=== PATIENT | male | born 1990 | race Caucasian/White ===

== ENCOUNTER 2023-03-01 15:04 | Emergency (ER) | payer SELFPAY ==
[2023-03-01 15:49] LABS: Absolute Lymphocytes (CBC) 2.3 K/uL (0.7-4.9); Hematocrit 44.2 % (39.6-49.0); Lymphocytes % 24.1 % (15.3-44.8); MPV 9.5 fL (7.6-11.3); Platelets 245 thou/uL (152-406); RBC Red Blood Cell Count 4.65 M/uL (4.33-5.43)
[2023-03-01 16:14] LABS: Magnesium 2.4 mg/dL (1.6-2.4); Potassium 3.6 mEq/L (3.5-5.1); Troponin High Sensitivity 3.8 pg/mL (<58.9)
--- NOTE | 2023-03-01 17:09 | RAD REPORT ---
EXAM DESCRIPTION: [facility] Single View03/01/2023 4:05 pm CLINICAL HISTORY: PALPITATIONS COMPARISON: No comparisons TECHNIQUE: Portable AP view of the chest. FINDINGS: The lungs are clear. No pneumothorax or effusion. The cardiomediastinal contours are unre markable. IMPRESSION: No acute cardiopulmonary process.
--- NOTE | 2023-03-01 18:17 | EDPHYS ---
Physician Documentation [facility] Name: Akin Freeman Age: 33 yrs Sex: Male : 1990 Arrival Date: 03/01/2023 Time: 15:04 Bed 12 Private MD: ED Physician Estuardo Leo HPI: 03/01 18:08 This 33 yrs old Male presents to ER via EMS with complaints of Palpitations. cp 18:08 The patient presents with a history of heart racing. Context: The symptoms occur while cp on stair master at gym. 18:08 Onset: The symptoms/episode began/occurred just prior to arrival, today. cp 18:08 Duration: The patient or guardian reports a single episode, that is now resolved. cp Associated signs and symptoms: Pertinent positives: lightheadedness, near-syncope, Pertinent negatives: chest pain, fever, SOB, syncope, vomiting. Severity of symptoms: in the emergency department the symptoms have improved markedly. Historical: - Allergies: 15:09 No Known Allergies; ap3 - Home Meds: 15:09 Omeprazole Oral [Active]; ap3 - PMHx: 15:09 Gastroesophageal reflux disease; ap3 - Immunization history:: Client reports receiving the 2nd dose of the Covid vaccine. - Social history:: Smoking status: unknown. ROS: 18:15 Constitutional: Negative for body aches, chills, fever, poor PO intake. cp 18:15 Cardiovascular: Positive for palpitations, Negative for chest pain, edema. cp 18:15 Respiratory: Negative for cough, shortness of breath, wheezing. 18:15 Abdomen/GI: Negative for abdominal pain, nausea, vomiting, and diarrhea. 18:15 : Negative for urinary symptoms. 18:15 Neuro: Positive for dizziness, near syncope, Negative for altered mental status, headache, syncope, weakness. 18:15 All other systems are negative. Exam: 15:42 ECG was reviewed by the Attending Physician. cp 18:20 Constitutional: The patient appears in no acute distress, alert, awake, comfortable, cp non-diaphoretic, non-toxic, well developed, well nourished. 18:20 Head/Face: Normocephalic, atraumatic. cp 18:20 Eyes: Periorbital structures: appear normal, Pupils: equal, round, and reactive to light and accomodation, Extraocular movements: intact throughout, Conjunctiva: normal, no exudate, no injection, Sclera: no appreciated abnormality, Lids and lashes: appear normal, bilaterally. 18:20 ENT: External ear(s): are unremarkable, Nose: is normal, Mouth: Lips: moist, Oral mucosa: pink and intact, moist, Posterior pharynx: is normal, airway is patent, no erythema, no exudate. 18:20 Neck: C-spine: vertebral tenderness, is not appreciated, crepitus, is not appreciated, ROM/movement: is normal, is supple, without pain, no range of motions limitations. 18:20 Chest/axilla: Inspection: Palpation: is normal, no crepitus, no tenderness. 18:20 Cardiovascular: Rate: normal, Rhythm: regular, Heart sounds: murmur, not appreciated, Edema: is not appreciated. 18:20 Respiratory: the patient does not display signs of respiratory distress, Respirations: normal, no use of accessory muscles, no retractions, labored breathing, is not present, Breath sounds: are clear throughout, no decreased breath sounds, no stridor, no wheezing. 18:20 Abdomen/GI: Inspection: abdomen appears normal, Palpation: abdomen is soft and non-tender, in all quadrants. 18:20 Back: pain, is absent, ROM is normal. 18:20 Neuro: Orientation: to person, place \T\ time. Mentation: is normal, Cerebellar function: is grossly normal, Motor: moves all fours, strength is normal, Sensation: is normal. Vital Signs: 15:07 BP 132 / 61; Pulse 88; Resp 16; Temp 98.5; Pulse Ox 98% ; ap3 15:11 Weight 92.99 kg; ap3 18:44 Pulse 76; Pulse Ox 100% ; ap3 MDM: 15:17 Patient medically screened. cp 18:15 Data reviewed: vital signs, nurses notes, lab test result(s), EKG, radiologic studies, cp CT scan, and as a result, I will discharge patient. 18:15 Independent interpretation of the following test(s) in the Emergency Department EKG: cp See my EKG interpretation above. Counseling: I had a detailed discussion with the patient and/or guardian regarding the historical points, exam findings, and any diagnostic results supporting the discharge/admit diagnosis, the presence of at least one elevated blood pressure reading (>120/80) during this emergency department visit, lab results, radiology results. 03/01 15:26 Order name: Basic Metabolic Panel; Complete Time: 18:05 03/01 18:05 Interpretation: Normal except: CL 108; GFR 86. 03/01 15:26 Order name: CBC with Diff; Complete Time: 18:05 cp 03/01 15:26 Order name: Magnesium; Complete Time: 18:05 cp 03/01 15:26 Order name: Troponin HS; Complete Time: 18:05 cp 03/01 15:26 Order name: XRAY Chest (1 view); Complete Time: 18:05 cp 03/01 18:05 Interpretation: Report review. 03/01 15: Order name: EKG; Complete Time: 15:26 cp 03/01 15:26 Order name: Cardiac monitoring; Complete Time: 15:31 cp 03/01 15:26 Order name: EKG - Nurse/Tech; Complete Time: 15:43 03/01 15: Order name: IV Saline Lock; Complete Time: 15:31 cp 03/01 15:26 Order name: Labs collected and sent; Complete Time: 15:43 cp 03/01 15:26 Order name: O2 Per Protocol; Complete Time: 15:31 cp 03/01 15:26 Order name: O2 Sat Monitoring; Complete Time: 15:31 cp EC:42 Rate is 67 beats/min. Rhythm is regular. TN interval is normal. QRS interval is normal. cp QT interval is normal. T waves are Inverted in lead aVR. Interpreted by me. Reviewed by me. Administered Medications: No medications were administered Disposition Summary: 03/01/23 18:16 Discharge Ordered Location: Home cp Problem: new cp Symptoms: have improved cp Condition: Stable cp Diagnosis - Palpitations cp - Syncope Near cp Followup: cp - With: Kirit Argueta MD - When: 2 - 3 days - Reason: Recheck today's complaints Discharge Instructions: - Discharge Summary Sheet cp - Near-Syncope cp - Palpitations cp - Aspirin and Your Heart cp - Ambulatory Cardiac Monitoring cp Forms: - Medication Reconciliation Form cp - Thank You Letter cp - Antibiotic Education cp - Prescription Opioid Use cp - Patient Portal Instructions cp - Leadership Thank You Letter cp - Work release form ap3 Signatures: Dispatcher [employer] EDMS Estuardo Pineda PA PA cp Prokisch, Marya, RN RN ap3
--- NOTE | 2023-03-01 18:17 | ER ---
Nurse's Notes [facility] Name: Akin Freeman Age: 33 yrs Sex: Male : 1990 Arrival Date: 03/01/2023 Time: 15:04 Bed 12 Private MD: Diagnosis: Palpitations;Syncope Near Presentation: 03/01 15:07 Chief complaint: EMS states: patient was working out on a stairmastr when his heart ap3 rate got into the 170s. patient reports feeling dizzy and light headed at that time. patient states today was his first workout in a few years. Coronavirus screen: At this time, the client does not indicate any symptoms associated with coronavirus-19. Ebola Screen: No symptoms or risks identified at this time. Initial Sepsis Screen: Does the patient meet any 2 criteria? No. Patient's initial sepsis screen is negative. Does the patient have a suspected source of infection? No. Patient's initial sepsis screen is negative. Risk Assessment: Do you want to hurt yourself or someone else? Patient reports no desire to harm self or others. Onset of symptoms was March 01, 2023. Care prior to arrival: Medication(s) given: Normal saline infusion, IV initiated. 20 GA, in the right antecubital area. 15:07 Method Of Arrival: EMS: [facility] ap3 15:07 Acuity: ANJELICA 3 ap3 Triage Assessment: 15:08 General: Appears in no apparent distress. Behavior is calm, cooperative, appropriate ap3 for age. Pain: Denies pain. Neuro: Level of Consciousness is awake, alert, obeys commands, Oriented to person, place, time, situation, Reports dizziness, light headedness. Cardiovascular: Patient's skin is warm and dry. Respiratory: Airway is patent Respiratory effort is even, unlabored, Respiratory pattern is regular, symmetrical. Historical: - Allergies: 15:09 No Known Allergies; ap3 - Home Meds: 15:09 Omeprazole Oral [Active]; ap3 - PMHx: 15:09 Gastroesophageal reflux disease; ap3 - Immunization history:: Client reports receiving the 2nd dose of the Covid vaccine. - Social history:: Smoking status: unknown. Screenin:09 Abuse screen: Denies threats or abuse. Nutritional screening: No deficits noted. ap3 Tuberculosis screening: No symptoms or risk factors identified. 15:09 [facility] ED Fall Risk Assessment (Adult) History of falling in the last 3 months, ap3 including since admission No falls in past 3 months (0 pts). Vital Signs: 15:07 BP 132 / 61; Pulse 88; Resp 16; Temp 98.5; Pulse Ox 98% ; ap3 15:11 Weight 92.99 kg; ap3 18:44 Pulse 76; Pulse Ox 100% ; ap3 ED Course: 15:06 Patient arrived in ED. ap3 15:08 Triage completed. ap3 15:09 Arm band placed on right wrist. ap3 15:09 Patient has correct armband on for positive identification. Bed in low position. Call ap3 light in reach. Side rails up X2. yard warehouse worker on. Pulse ox on. NIBP on. 15:17 Estuardo Pineda PA is PHCP. cp 15:17 Estuardo Leo MD is Attending Physician. joni 15:31 Marya Dhaliwal, RUTHY is Primary Nurse. ap3 15:43 Initial lab(s) drawn, by hi, sent to lab. EKG done, by ED staff, reviewed by Estuardo Pineda ap3 REBECCA. 16:07 XRAY Chest (1 view) In Process Unspecified. EDMS 18:16 Kirit Argueta MD is Referral Physician. cp 18:43 No provider procedures requiring assistance completed. IV discontinued, intact, ap3 bleeding controlled, No redness/swelling at site. Pressure dressing applied. 18:44 Provided Education on: discharge instructions. ap3 Administered Medications: No medications were administered Medication: 18:43 VIS not applicable for this client. ap3 Outcome: 18:16 Discharge ordered by . cp 18:43 Discharged to home ambulatory. ap3 18:43 Condition: good 18:43 Discharge instructions given to patient, Instructed on discharge instructions, follow up and referral plans. Demonstrated understanding of instructions, follow-up care. 18:44 Patient left the ED. ap3 Signatures: Dispatcher [employer] EDIN Estuardo Pineda PA PA cp Prokisch, Amanda, RN RN ap3
[2023-03-01 18:48] VITALS: BP 132/61; TEMP 98.5
[2023-03-01 18:49] VITALS: O2SAT 100
--- NOTE | 2023-03-02 12:15 | EKG ---
Test Date: 2023-03-01 Test Time: 15:36:44 Harness Worker: ALP MEASUREMENT RESULTS: Intervals: Rate: 67 LA: 138 QRSD: 90 QT: 386 QTc: 407 [place]: P: 46 LA: 138 QRS: 89 T: 23 INTERPRETIVE STATEMENTS: Normal sinus rhythm Normal ECG No previous ECG available for comparison Electronically Signed On 03-02-23 12:12:30 CDT by Kirit Argueta
== END 2023-03-01 18:44 | disposition home or self-care (01) ==
LOC: ER 15:04
DX: R00.2 Palpitations (principal); R55 Syncope and collapse
CPT/HCPCS: 36415; 71045; 80048; 83735; 84484; 85025; 93005; 99284